=== PATIENT | female | born 1960 | race Caucasian/White ===

== ENCOUNTER → 2016-07-09 | Outpatient (CLI) | payer OTHER ==
[2016-07-09 14:55] LABS: BLOOD UREA NITROGEN 8 mg/dL (7-22); BUN/CREATININE RATIO 11.42 (6-20); CALCIUM 9.7 mg/dL (8.7-10.7); CHLORIDE 99 meq/L (98-112); CREATININE 0.7 mg/dL (0.50-1.20); EST GLOMERULAR FILTRATION > 60 (>60 ml/min/1.73m(2)); GLUCOSE 94 mg/dL (78-110); SODIUM 134 meq/L (135-145)
[2016-07-09 14:55] LABS: PHOSPHORUS 3.7 mg/dl (2.4-4.3)
== END ==
LOC: LAB 14:32
PROVIDERS: ATTEND Family Medicine
DX: M81.0 Age-related osteoporosis without current pathological fracture (principal); I10 Essential (primary) hypertension; F17.210 Nicotine dependence, cigarettes, uncomplicated
CPT/HCPCS: 36415; 80048; 83735; 84100

== ENCOUNTER → 2016-07-11 | Outpatient (CLI) | payer OTHER | LOC: MMPC 09:00 | PROVIDERS: ATTEND Family Medicine | DX: M81.0 Age-related osteoporosis without current pathological fracture (principal); N23 Unspecified renal colic; M54.5 Low back pain | CPT/HCPCS: 81002; 99213; G0463; J0897 ==

== ENCOUNTER → 2016-09-24 | Outpatient (CLI) | payer OTHER | LOC: MMPC 09:00 | PROVIDERS: ATTEND Family Medicine | DX: R07.89 Other chest pain (principal); M25.561 Pain in right knee; M25.511 Pain in right shoulder; M54.5 Low back pain; J44.9 Chronic obstructive pulmonary disease, unspecified ==

== ENCOUNTER → 2016-09-24 | Outpatient (CLI) | payer OTHER | LOC: RAD 15:22 | PROVIDERS: ATTEND Family Medicine | DX: R07.89 Other chest pain (principal); J44.9 Chronic obstructive pulmonary disease, unspecified; M25.561 Pain in right knee; M25.511 Pain in right shoulder; M54.5 Low back pain | CPT/HCPCS: 99213 ==

== ENCOUNTER → 2016-10-06 | Outpatient (CLI) | payer OTHER ==
--- NOTE | 2016-10-06 21:02 | DI ---
PA /LATERAL CHEST X-RAY, 10/06/2016 3:28 PM : Clinical History: Right-sided chest wall pain. Previous Exam: 08/22/2008. There is no acute soft tissue or bony abnormality. The patient is status post vertebroplasty of L2. T he patient has also developed dextroscoliosis of the mid lumbar spine. Heart size is normal. Lungs ar e clear. Mediastinal structures are normal. There are no pulmonary nodules. Readin. Normal chest x-ray. 2. The patient has undergone a vertebroplasty procedure at L2 and there is now dextroscoliosis of th e mid lumbar spine.
--- NOTE | 2016-10-06 21:08 | DI ---
LUMBAR SPINE SERIES, 10/06/2016 3:27 PM: Clinical History: Bilateral low back pain without sciatica. Previous Exam: None at this facility. A routine upright 3 view study is submitted. The vertebral bodies are of normal height and size. Vert ebroplasties have been performed at L2 and L3 although the height of the L3 vertebral body is normal. There is slight narrowing of the left lateral aspect of the L2 vertebral body. There is moderately s evere to severe disc space narrowing at L1-2 through L4-5 with a normal disc space height at L5-S1. T here are severe degenerative arthritic changes in the left L2-3 apophyseal joint and in the L4-5 and L5-S1 apophyseal joints bilaterally. The pedicles and remaining posterior elements are unremarkable. Both SI joints are normal. Readin. Status post vertebroplasty is at L2 and L3. There is loss of height laterally on the left side of the L2 and presumably the procedure was done for severe osteoporosis. 2. Chronic disc space narrowing is present from L1-2 through L4-5 with degenerative arthritic change s in the left L2-3 apophyseal joint and in the L4-5 and L5-S1 apophyseal joints bilaterally.
--- NOTE | 2016-10-06 21:08 | DI ---
RIGHT SHOULDER, 10/06/2016 3:27 PM: Clinical History: Acute right shoulder pain. Previous Exam: None at this facility. 2 views are submitted. There is narrowing of the glenohumeral joint space with irregularity of the gl enoid fossa and some cystic changes in the glenoid. The visualized portions of the right lung and ape x are normal. Reading: Degenerative arthritic changes of the glenohumeral joint.
--- NOTE | 2016-10-06 21:12 | DI ---
RIGHT KNEE, 10/06/2016 3:28 PM: Clinical History: Recurrent right knee pain. Previous Exam: 09/05/2008. 3 views are submitted. Significant artifacts are present on the AP and lateral views and the should b e repeated. There is no acute soft tissue, osseous, or joint abnormality. Bony densities have develop ed posteriorly to the tibial plateaus on the lateral film. These were not present on the prior exam a nd they may represent synovial osteochondromas. There is lateral subluxation of the patella. Readin. The lateral and AP views have substantial artifacts and should be repeated. This can be done at n o additional charge to the patient and at the patient's convenience. 2. There are degenerative arthritic changes of the patellofemoral compartment with lateral subluxati on of the patella. 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
== END ==
LOC: RAD 15:20 → LAB 15:20
PROVIDERS: ATTEND Family Medicine
DX: M54.5 Low back pain (principal); M25.511 Pain in right shoulder; M25.561 Pain in right knee; R07.89 Other chest pain; J44.9 Chronic obstructive pulmonary disease, unspecified; M17.11 Unilateral primary osteoarthritis, right knee; M48.06 Spinal stenosis, lumbar region; M47.816 Spondylosis without myelopathy or radiculopathy, lumbar region; M19.011 Primary osteoarthritis, right shoulder
CPT/HCPCS: 71020; 72100; 73030; 73560

== ENCOUNTER → 2016-10-13 | Outpatient (CLI) | payer OTHER ==
--- NOTE | 2016-10-13 14:03 | DI ---
RIGHT KNEE, 10/13/2016 1:14 PM: Clinical History: Right knee pain. Previous Exam: 10/06/2016. AP and tunnel views are submitted. Both views are weightbearing views. There is narrowing of the medi al compartment consistent with degenerative arthritic disease. Sclerosis is noted in the medial tibia l plateau. Reading: Degenerative arthritic changes of the medial compartment.
== END ==
LOC: ORTHO 13:15
PROVIDERS: ATTEND Orthopaedic Surgery
DX: M25.561 Pain in right knee (principal); M17.11 Unilateral primary osteoarthritis, right knee; F17.200 Nicotine dependence, unspecified, uncomplicated
CPT/HCPCS: 73560

== ENCOUNTER → 2016-10-23 | Outpatient (CLI) | payer OTHER ==
--- NOTE | 2016-10-23 18:21 | DI ---
MRI LOW EXTREMITY JNT W/O CN,10/23/2016 2:54 PM: Clinical History: Knee pain. Previous Exam: None available. Findings: Multiplanar MR images are obtained through the right knee without contrast, and demonstrate a full-th ickness osteochondral defect involving the medial tibial plateau. There is near full thickness chondr omalacia of the medial femoral condyle as well with some subchondral edema. There is thinning of the articular cartilage within the lateral and anterior compartments without any full-thickness defects. Multiple osteophytes are seen tricompartmentally. There is maceration of the medial meniscus. The ant erior and posterior cruciate ligaments are intact. The medial and lateral collateral ligaments are al so intact. There is a large right knee joint effusion. There is no evidence of Musa's cyst. There is a loose body within the posterior knee joint measuring 6.1 mm within the lateral posterior r ecess. There is also a loose body within the anterior knee joint medially and measuring 7 mm in long axis. The major vascular flow voids are unremarkable. Impression: 1. Full-thickness osteochondral defects with loose bodies throughout the right knee joint with subcho ndral edema predominantly within the medial compartment involving both the medial femoral condyle and the medial tibial plateau. 2. Complex macerated tear of the medial meniscus. 3. Large knee joint effusion.
== END ==
LOC: MRI 14:49
PROVIDERS: ATTEND Orthopaedic Surgery
DX: M25.561 Pain in right knee (principal); S83.231A Complex tear of medial meniscus, current injury, right knee, initial encounter; M25.461 Effusion, right knee
CPT/HCPCS: 73721

== ENCOUNTER → 2016-10-27 | Outpatient (CLI) | payer OTHER ==
[2016-10-27 16:36] LABS: HEMATOCRIT 42.5 % (37.0-47.0); HEMOGLOBIN 15.1 g/dL (12.0-16.0); MEAN CORPUSCULAR HEMOGLOBIN 33.1 PG (27-31); MEAN CORPUSCULAR HGB CONC 35.5 g/dL (33-37); MEAN CORPUSCULAR VOLUME 93.2 FL (81-99); MEAN PLATELET VOLUME 9.5 FL (7.4-12.2); RED BLOOD COUNT 4.56 10^6/uL (4.20-5.40)
[2016-10-29 15:00] LABS: RHEUMATOID FACTOR <15 IU/mL (<15)
== END ==
LOC: LAB 16:11
PROVIDERS: ATTEND Orthopaedic Surgery
DX: M25.561 Pain in right knee (principal); M25.461 Effusion, right knee; F17.200 Nicotine dependence, unspecified, uncomplicated
CPT/HCPCS: 36415; 85027; 85652; 86140; 86200; 86431; 86812

== ENCOUNTER → 2016-12-01 | Outpatient (CLI) | payer OTHER | LOC: MMPC 10:00 | PROVIDERS: ATTEND Orthopaedic Surgery | DX: M17.11 Unilateral primary osteoarthritis, right knee (principal); M25.461 Effusion, right knee | CPT/HCPCS: 99214 ==

== ENCOUNTER → 2016-12-04 | Outpatient (CLI) | payer OTHER ==
--- NOTE | 2016-12-04 15:50 | EKG ---
[address] [address] Measurements Intervals [place] Rate: 82 P: 77 SD: 161 QRS: 85 QRSD: 84 T: 23 QT: 377 QTc: 415 Interpretive Statements SINUS RHYTHM POSSIBLE LEFT ATRIAL ENLARGEMENT NONSPECIFIC ST & T-WAVE ABNORMALITY Compared to ECG 02/24/2014 15:34:18 T-wave abnormality now present Electronically Signed On 12-05-16 10:28:12 MDT by Michael Ng [email or web address] [id number]
[2016-12-04 16:18] LABS: EOSINOPHILS # (AUTO) 0.23 10*3/UL; EOSINOPHILS % (AUTO) 2.4 % (0-8); HEMATOCRIT 42.1 % (37.0-47.0); HEMOGLOBIN 14.9 g/dL (12.0-16.0); LYMPHOCYTES # (AUTO) 3.08 10*3/uL; MEAN CORPUSCULAR HEMOGLOBIN 33.9 PG (27-31); MEAN CORPUSCULAR HGB CONC 35.4 g/dL (33-37); MEAN CORPUSCULAR VOLUME 95.9 FL (81-99); MEAN PLATELET VOLUME 9.9 FL (7.4-12.2); MONOCYTES # (AUTO) 1.14 10*3/UL (0.3-0.8); MONOCYTES % (AUTO) 11.9 % (5-15); NEUTROPHILS # (AUTO) 4.98 10*3/UL; NEUTROPHILS % (AUTO) 51.9 % (50-80); RED BLOOD COUNT 4.39 10^6/uL (4.20-5.40)
[2016-12-04 16:19] LABS: PLATELET MORPHOLOGY COMMENT NORMAL MORPHOLOGY (NORM); RBC MORPHOLOGY COMMENT NORMAL MORPHOLOGY (NORM); WBC MORPHOLOGY COMMENT NORMAL MORPHOLOGY (NORM)
[2016-12-04 16:33] LABS: BLOOD UREA NITROGEN 6 mg/dL (7-22); CALCIUM 9.2 mg/dL (8.7-10.7); EST GLOMERULAR FILTRATION > 60 (>60 ml/min/1.73m(2)); SERUM ALBUMIN 4.2 g/dL (3.5-4.8)
== END ==
LOC: LAB 15:14
PROVIDERS: ATTEND Orthopaedic Surgery
DX: M17.11 Unilateral primary osteoarthritis, right knee (principal); E03.9 Hypothyroidism, unspecified; I10 Essential (primary) hypertension; F10.10 Alcohol abuse, uncomplicated; F17.200 Nicotine dependence, unspecified, uncomplicated
CPT/HCPCS: 36415; 80053; 85025; 93005; 93010

== ENCOUNTER 2016-12-09 08:03 | Day surgery (SDC) | payer OTHER ==
[~2016-12-09 08:03] MED LIST: ATROPINE SULFATE 0.4 MG/1 ML VIAL IVP PRN; HYDROmorphone 2 MG/1 ML IVP PRN; LIDOCAINE W/ SODIUM BICARB 0.5 ML SYR ONE; Lactated Ringers 1,000 ML PRIMARY IV ONE; Lactated Ringers 1,000 ML PRIMARY IV SCH; NORMAL SALINE 10 ML SYRINGE FLUSH IVP PRN; ONDANSETRON 4 MG/2 ML VIAL IVP PRN; Ondansetron ODT Tab 8 MG TAB PO PRN; ceFAZolin Inj 2gm (Premix) 50 ML IV ONE; fentaNYL Inj 100 MCG/2 ML VIAL IVP PRN
[2016-12-09] MEDS ORDERED: EPINEPHrine Inj (1:1,000) 30mg/30ml vial ONE (08:49)
[2016-12-09] MEDS ORDERED: Ropivacaine 0.2% VIAL 20 ML ONE (08:49)
[2016-12-09] MEDS ORDERED: Lactated Ringers 1,000 ML PRIMARY IV ONE (09:49)
[2016-12-09] MEDS ORDERED: DEXAMETHASONE PF 10 MG/1 ML VIAL ONE (10:08)
[2016-12-09 10:20] LABS: WBC, BODY FLUID 0.241 10*3/uL
[2016-12-09] MEDS ORDERED: BETAMET ACET/BETAMET NA PH 6 MG/1 ML - 5 ML ONE (10:20)
[2016-12-09] MEDS ORDERED: HYDROmorphone 2 MG/1 ML ONE ×2 (10:23→10:49)
[2016-12-09] MEDS ORDERED: BISACODYL 10 MG SUPPOSITORY RECTAL PRN (10:32)
[2016-12-09] MEDS ORDERED: Ondansetron ODT Tab 8 MG TAB PO PRN (10:32)
[2016-12-09] MEDS ORDERED: IBUPROFEN 400 MG TABLET PO PRN (10:32)
[2016-12-09] MEDS ORDERED: ONDANSETRON 4 MG/2 ML VIAL IVP PRN (10:32)
[2016-12-09] MEDS ORDERED: ACETAMINOPHEN 325 MG TABLET PO PRN (10:32)
[2016-12-09] MEDS ORDERED: MAG HYDROX/AL HYDROX/SIMETH 30 ML SUSP PO PRN (10:32)
[2016-12-09] MEDS ORDERED: NORMAL SALINE 10 ML SYRINGE FLUSH IVP PRN (10:32)
[2016-12-09] MEDS ORDERED: HYDROcodone-APAP 7.5 MG-325 MG TABLET PO PRN (10:32)
[2016-12-09] MEDS ORDERED: BISACODYL 5 MG TABLET PO PRN (10:32)
[2016-12-09] MEDS ORDERED: MORPHINE SULFATE 2 MG/1 ML IVP PRN (10:32)
[2016-12-09] MEDS ORDERED: CALCIUM CARBONATE 500 MG (TUMS) CHEWABLE TABLET PO PRN (10:32)
[2016-12-09] MEDS ORDERED: diphenhydrAMINE 25 MG CAPSULE PO PRN (10:32)
[2016-12-09] MEDS ORDERED: Prochlorperazine Tab 10 MG TAB PO PRN (10:32)
[2016-12-09] MEDS ORDERED: Lactated Ringers 1,000 ML PRIMARY IV SCH (10:45)
[2016-12-09 10:49] VITALS: RESP 14
[2016-12-09] MEDS ORDERED: HYDROcodone-APAP 7.5 MG-325 MG TABLET PO ONE (11:06)
[2016-12-09 14:40] VITALS: TEMP 97.1
[2016-12-10] MEDS ORDERED: ASPIRIN 325 MG EC TABLET PO SCH (09:00)
--- NOTE | 2016-12-10 14:49 | OPS CRUTCH ---
Diagnosis : Right Knee Scope Referral Reason: Gait Training/Walker S: The patient states she has three stairs. O: The patient ambulated 30 feet and then ascended and descended three stairs. The patient was issued a walker and instructed in its propre use and care. A: The patient tolerated gait and stair training well. She will be in for outpatient therapy on Thursday. P: No further therapy is indicated at this time. DESTINEE
== END 2016-12-09 12:37 | disposition home or self-care (01) ==
LOC: SDSC 08:03
PROVIDERS: ATTEND Orthopaedic Surgery
DX: M17.11 Unilateral primary osteoarthritis, right knee (principal); M25.461 Effusion, right knee; S83.281A Other tear of lateral meniscus, current injury, right knee, initial encounter; S83.241A Other tear of medial meniscus, current injury, right knee, initial encounter; M65.9 Synovitis and tenosynovitis, unspecified
CPT/HCPCS: 20610; 29876; 29880 ×2; 80320; 87070; 87075; 87102; 87205; 89060; 97116; J0171; J0690; J0702; J2795; J1100; J1170; J7120

== ENCOUNTER → 2016-12-18 | Outpatient (CLI) | payer OTHER | LOC: MMPC 10:00 | PROVIDERS: ATTEND Orthopaedic Surgery | DX: S83.241A Other tear of medial meniscus, current injury, right knee, initial encounter (principal); M94.261 Chondromalacia, right knee ==

== ENCOUNTER → 2017-01-12 | Outpatient (CLI) | payer OTHER | LOC: MMPC 10:00 | PROVIDERS: ATTEND Orthopaedic Surgery | DX: M17.11 Unilateral primary osteoarthritis, right knee (principal); M25.461 Effusion, right knee; S83 Dislocation and sprain of joints and ligaments of knee; S83.281D Other tear of lateral meniscus, current injury, right knee, subsequent encounter; S83.241D Other tear of medial meniscus, current injury, right knee, subsequent encounter; M12.561 Traumatic arthropathy, right knee ==

== ENCOUNTER → 2017-01-26 | Outpatient (CLI) | payer OTHER ==
[2017-01-26 17:27] LABS: BLOOD UREA NITROGEN 5 mg/dL (7-22); BUN/CREATININE RATIO 8.33 (6-20); CALCIUM 9.4 mg/dL (8.7-10.7); EST GLOMERULAR FILTRATION > 60 (>60 ml/min/1.73m(2)); MAGNESIUM 1.7 mg/dL (1.6-2.4)
== END ==
LOC: LAB 16:35
PROVIDERS: ATTEND Family Medicine
DX: M81.0 Age-related osteoporosis without current pathological fracture (principal)
CPT/HCPCS: 36415; 80048; 83735; 84100

== ENCOUNTER → 2017-02-04 | Outpatient (CLI) | payer OTHER ==
[2017-02-04 14:24] LABS: BLOOD UREA NITROGEN 5 mg/dL (7-22); BUN/CREATININE RATIO 8.33 (6-20); CALCIUM 9.7 mg/dL (8.7-10.7); EST GLOMERULAR FILTRATION > 60 (>60 ml/min/1.73m(2))
== END ==
LOC: MOB LAB 13:20
PROVIDERS: ATTEND Family Medicine
DX: M81.0 Age-related osteoporosis without current pathological fracture (principal); Z72.0 Tobacco use; R89.9 Unspecified abnormal finding in specimens from other organs, systems and tissues
CPT/HCPCS: 80048; 84100; G0463; J0897